=== PATIENT | male | born 1940 | race Caucasian/White ===

== ENCOUNTER 2017-10-01 11:56 | Outpatient (CLI) | payer MEDICARE, BC ==
--- NOTE | 2017-10-01 16:03 | MRI ---
MRI RIGHT SHOULDER WITHOUT CONTRAST 10/01/17 HISTORY: M25.501 - right shoulder pain. COMPARISON: None. FINDINGS: BICEPS TENDON: There is severe intra-articular and extra-articular partial tearing and intra-articular severe tendin osis. There is tearing of the biceps tendon at the biceps labral anchor with minimal fibers attaching on the supraglenoid tubercle. GLENOID LABRUM: There is severe degeneration of the superior labrum as well as nondisplaced superior labral tear wit h abnormal signal extending into the substance of the superior labrum at the level of the biceps tend on insertion. ROTATOR CUFF: There is severe tendinosis throughout the supraspinatus and infraspinatus tendons. There is multifoca l greater than 50% thickness bursal surface tearing of the anterior fibers of the infraspinatus as we ll as a deep undersurface tearing of the mid portion supraspinatus tendon with fibers retracted to th e mid humeral head. There are some granulation tissue scarring preventing further retraction of the s upraspinatus tendon. At the level of the mid supraspinatus tendon is a tear measuring 1 cm in AP dime nsion with retraction fiber 7 mm. There is extensive tendinosis of subscapularis. The teres minor is intact. There is interstitial tear ing of the infraspinatus tendon with fluid extending along the myotendinous junction. BONES: Severe degenerative disease acromioclavicular joint with hypertrophic osteophyte formation. MUSCLES: The muscle signal and bulk is normal. No evidence of capsulitis. IMPRESSION: 1. Severe intra-articular tendinosis biceps tendon with partial tear at the supraglenoid tubercl e and labral insertion. The tear extends into the superior labrum. 2. Extensive multifocal areas of tearing on the bursal and articular surfaces of the supraspinat us tendon. The anterior most 9 mm foot- plate of the supraspinatus tendon is intact, although there i s granulation tissue bridging an 8 mm gap between bursal fibers and footplate and distal tendon. Ther e is also multiple areas of undersurface, greater than 75% tearing. There is also a 1 cm AP dimension anterior fiber full thickness tear with retraction of 7 mm. 3. Extensive interstitial tearing of the infraspinatus tendon. 4. Extensive tendinosis and partial tearing of the extra-articular biceps tendon. POS: [facility]
== END 2017-10-01 11:57 | disposition home or self-care (01) ==
LOC: MRI 11:56 → EDBD 13:00
PROVIDERS: ATTEND Orthopaedic Surgery
DX: M25.511 Pain in right shoulder (principal); M75.101 Unspecified rotator cuff tear or rupture of right shoulder, not specified as traumatic; S43.401A Unspecified sprain of right shoulder joint, initial encounter; S46.911A Strain of unspecified muscle, fascia and tendon at shoulder and upper arm level, right arm, initial encounter

== ENCOUNTER 2017-10-21 08:50 | Outpatient (CLI) | payer MEDICARE, BC ==
[2017-10-21 10:37] LABS: Hemoglobin 12.2 g/dL (14.0-18.0); Mean Corpuscular HGB CONC 34.1 g/dL (32.0-36.0); Mean Corpuscular Hemoglobin 33.2 pg (27.0-31.0); Mean Corpuscular Volume 97.4 fl (80.0-94.0); Mean Platelet Volume 6.5 fL (7.4-10.4); Platelet Count 270 thou/uL (130-400); RBC Distribution Width 12.1 % (11.5-14.5); Red Blood Cell (RBC) Count 3.67 mill/uL (4.70-6.10); White Blood Cell (WBC) Count 5.7 thou/uL (4.8-10.8)
[2017-10-21 10:57] LABS: Anion Gap 10 mmol/L (10-20); BUN (Urea Nitrogen) 15 mg/dL (8.4-25.7); Calc. Creatinine Clearance 0 mL/min (70-130); Calcium 9.3 mg/dL (7.8-10.44); Carbon Dioxide 29 mmol/L (23-31); Chloride 103 mmol/L (98-107); Estimated GFR-MDRD 90; Glucose 100 mg/dL (83-110); Potassium 3.4 mmol/L (3.5-5.1); Sodium 139 mmol/L (136-145)
--- NOTE | 2017-10-22 06:30 | EKG ---
Test Reason : Blood Pressure : / mmHG Vent. Rate : 061 BPM Atrial Rate : 061 BPM P-R Int : 000 ms QRS Dur : 194 ms QT Int : 502 ms P-R-T Axes : 000 105 -69 degrees QTc Int : 505 ms Electronic ventricular pacemaker No previous ECGs available Confirmed by BOUBACAR REYES ([id number]) on 10/22/2017 6:30:33 AM Referred By: LOUIS Confirmed By:BOUBACAR REYES
== END 2017-10-21 08:51 | disposition home or self-care (01) ==
LOC: LABBT 08:50
PROVIDERS: ATTEND Orthopaedic Surgery
DX: Z01.810 Encounter for preprocedural cardiovascular examination (principal); Z01.812 Encounter for preprocedural laboratory examination; M75.121 Complete rotator cuff tear or rupture of right shoulder, not specified as traumatic
CPT/HCPCS: 80048; 85027; 93005; 93010

== ENCOUNTER 2017-10-23 05:59 | Day surgery (SDC) | payer MEDICARE, BC ==
[2017-10-21 09:34] VITALS: BMI 29.1
--- NOTE | 2017-10-22 09:13 | HP ---
HISTORY OF PRESENT ILLNESS: The patient is a 76-year-old right-handed white male who has a 6 month h istory of pain and weakness in his right shoulder which began after using a weed eater. He has had p ersistent symptoms despite rest, restriction of activities, and a previous cortisone injection. The pain is now interfering with day-to-day activities. PAST MEDICAL HISTORY: The patient has history of atherosclerotic cardiovascular disease. He had a p revious Watchman and also had a pacemaker placed approximately 2 months ago. He has obtained cardiac clearance from his reading tutor in [place], Dr. Jeremi Pappas. CURRENT MEDICATIONS: Lipitor, cabergoline, hydrochlorothiazide, pantoprazole, metoprolol, potassium, Plavix and aspirin. He has stopped Plavix 1 week preoperatively, but has continued the aspirin unde r the direction of Cardiology. ALLERGIES: He has no known allergies. FAMILY HISTORY/SOCIAL HISTORY/REVIEW OF SYSTEMS: Otherwise unremarkable. PHYSICAL EXAMINATION: GENERAL: Reveals a healthy male. HEENT: Unremarkable. NECK: Supple. CHEST: Clear. HEART: Regular rate and rhythm. ABDOMEN: Soft, nontender. RECTAL/GENITAL: Deferred. EXTREMITIES: Pertinent findings related to the right shoulder. There is no definite atrophy. There is tenderness in the subacromial area. Forward flexion is 160 degrees, which is painful. There is pain with abduction and weakness with abduction and external rotation. There is no instability. The re is positive impingement sign. Neurovascular exam is intact. 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 There is severe tendinosis of the biceps tendon and a full thickness retracted tear of the rotator cuff with multifocal degenerati on and delamination. 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 PLAN: Open acromioplasty, rotator cuff repair, probable biceps tenodesis. The nature of the surgery , length of recovery, and potential complications such as infection, loss of motion, incomplete relie f, neurovascular injury, recurrent tear, persistent weakness and need for additional treatment or rep eat surgery have been discussed in detail.
[2017-10-23] MEDS ORDERED: CEFAZOLIN/Water 2 GM/20 ML SYRINGE ONE (06:47)
[2017-10-23] MEDS ORDERED: Midazolam HCl 2 mg/2 ml Vial ONE (07:09)
[2017-10-23] MEDS ORDERED: Fentanyl 100 MCG/2 ML VIAL ONE (07:09)
[2017-10-23] MEDS ORDERED: Lidocaine 1% (PF) 30 ML VIAL ONE (07:09)
[2017-10-23] MEDS ORDERED: Promethazine HCl 25 MG/ML VIAL IM PRN (07:59)
[2017-10-23] MEDS ORDERED: Ketorolac Tromethamine 30 MG/ML VIAL IVP PRN (07:59)
[2017-10-23] MEDS ORDERED: Ondansetron HCl/PF 4 MG/2 ML Vial IVP PRN (07:59)
[2017-10-23] MEDS ORDERED: traMADol HCl 50 MG TAB PO PRN ×2 (07:59)
[2017-10-23] MEDS ORDERED: HYDROcodone/Acetaminophen 5/325 mg Tablet PO PRN ×2 (07:59)
[2017-10-23] MEDS ORDERED: Zolpidem Tartrate 5 MG TAB PO PRN (07:59)
[2017-10-23] MEDS ORDERED: Ropivacaine 0.2% 550 ML 550 ML NERVE BLCK SCH (07:59)
[2017-10-23] MEDS ORDERED: Fentanyl 100 MCG/2 ML VIAL IV PRN (07:59)
--- NOTE | 2017-10-23 12:45 | OP ---
DATE OF PROCEDURE: 10/23/2017 SURGEON: Dae Iyer M.D. GRAPHIC DESIGN TEACHER: Lou Fuller PA-C ANESTHESIA: General plus scalene block. PREOPERATIVE DIAGNOSES: Impingement syndrome and rotator cuff tear, right shoulder. POSTOPERATIVE DIAGNOSES: Impingement syndrome and rotator cuff tear, right shoulder. PROCEDURE PERFORMED: Open acromioplasty and rotator cuff repair, right shoulder. OPERATIVE FINDINGS: Examination under anesthesia revealed the shoulder to be stable. At exploration , there was moderate subacromial impingement and subacromial spurring. There was a tear at the inser tion of the supraspinatus in a U-shaped fashion. I did have to extend this anteriorly and posteriorl y to visualize the entire tear and to identify there was significant delamination of the undersurface of the rotator cuff, which was retracted. This involved the supraspinatus and infraspinatus. The g lenohumeral joint appeared to be essentially normal with minimal degenerative changes. The biceps te ndon was not really well visualized and appeared to be quite atretic or possibly previously ruptured and did not appeart to need any further treatment. NARRATIVE REPORT: After satisfactory anesthesia was induced in the semi-enriquez chair position, the p atient was prepped and draped in the routine manner. Shoulder was approached through an anterolatera l incision centered off the anterolateral edge of the acromion process. This was carried down to sub cutaneous tissues. Bleeding points controlled with Bovie cautery. Deltoid raphae was split in line with the skin incision and the deltotrapezial fascia incised in an L-shape fashion over the anterolat eral edge of the acromion process and the deltoid reflected anteriorly and medially. Coracoacromial ligament was divided and subacromial bursa incised and partial subacromial bursectomy was performed. The anterior edge of the acromion process was excised with an osteotome, flushed with the distal cla vicle and the undersurface beveled with smooth rasp. Using sharp and blunt dissection, the above fin dings were noted. The ends of the rotator cuff tear were freshened with sharp dissection and the tea r extended anterior and posterior, to be able to visualize the entirety as well as the undersurface. The repair of the rotator cuff was then performed with three double armed suture anchors using horiz ontal type mattress sutures incorporating the retracted delaminated tear on the inferior-superior fiordaliza face. The sutures were then tied from posterior to anterior. Prior to placing the anchors, the port ion of the greater trochanter was partially excised with the bony bed for the repair. After tying th e sutures, there appeared to be good repair and this was further reinforced with a double row techniq ue passing half of the sutures and 1 SwiveLock suture and the other SwiveLock placed in a crisscross fashion placing the SwiveLock anchors in the proximal lateral cortex of the humeral shaft. Following this, appeared to be good stable fixation and good range of motion of the shoulder. The wound was i rrigated. The deltoid was repaired back to bone with interrupted #1 Ethibond sutures. The deltoid ra phae was closed with interrupted 0 Vicryl, subcutaneous tissue closed with interrupted 2-0 Vicryl, an d skin closed with staple gun. Sterile dressing was applied and the patient immobilized in an arm sl ing. He was awakened and taken to recovery room in stable condition. There were no apparent intraop erative complications. The estimated blood loss was less than 100 mL. The patient will be discharged home in satisfactory condition. He was instructed in ice, elevation, and given written wound care instructions. He was instructed home program of isometrics of his bicep s and triceps and gentle passive pendulum exercises, but no active range of motion. He was given a p rescription for [place] 10 for pain, 100 tablets. He will be rechecked in my office in 2 weeks or soon er if there are any problems prior to that time.
[2017-10-23] MEDS ORDERED: Ropivacaine 0.5% HCl/PF (150 MG/30 ML VIAL) ONE (14:37)
[2017-10-23] MEDS ORDERED: Ropivacaine 0.2% HCl/PF (40 MG/20 ML VIAL) ONE (14:37)
[2017-10-23] MEDS ORDERED: PHENYLEPHRINE-NS 100 MCG/ML 10 ML SYRINGE ONE (15:22)
[2017-10-23] MEDS ORDERED: Propofol 200 MG/20 ML VIAL ONE (15:22)
[2017-10-23] MEDS ORDERED: Ketorolac Tromethamine 30 MG/ML VIAL ONE (15:22)
[2017-10-23] MEDS ORDERED: Lidocaine 1% PF 5 ML VIAL ONE (15:22)
[2017-10-23] MEDS ORDERED: Ondansetron HCl/PF 4 MG/2 ML Vial ONE (15:22)
== END 2017-10-23 12:00 | disposition home or self-care (01) ==
LOC: SDC 05:59
PROVIDERS: ATTEND Orthopaedic Surgery
PROC: 0LM10ZZ Reattachment of Right Shoulder Tendon, Open Approach (ICD-10-PCS; principal; 2017-10-23)
DX: M75.121 Complete rotator cuff tear or rupture of right shoulder, not specified as traumatic (principal); Z88.8 Allergy status to other drugs, medicaments and biological substances; I10 Essential (primary) hypertension; Z98.890 Other specified postprocedural states
CPT/HCPCS: 23420; 97110; 97139; A4306; C1713; G8984; G8985; G8986; J1885; J2001; J2250; J2405; J2704; J2795; J3010